=== PATIENT | male | born 1960 | race Caucasian/White ===

== ENCOUNTER 2021-05-17 09:03 | Emergency (ER) | payer OTHER ==
[~2021-05-17] VITALS: Ht 177.8 cm; Wt 90.7 kg
[~2021-05-17 09:03] MED LIST: NORCO 5-325 TA1 EACH PO
[2021-05-17] MEDS ORDERED: HYDROCODON-ACE1 EA10 PO (13:43)
== END 2021-05-17 14:11 | disposition home or self-care (01) ==
LOC: ED 09:03
DX: S97.81XA Crushing injury of right foot, initial encounter (principal); S92.311A Displaced fracture of first metatarsal bone, right foot, initial encounter for closed fracture; W23.0XXA Caught, crushed, jammed, or pinched between moving objects, initial encounter; F17.200 Nicotine dependence, unspecified, uncomplicated
CPT/HCPCS: 73630; 73700; 99284-25